=== PATIENT | male | born 1985 | race Hispanic/Latino ===

== ENCOUNTER → 2022-12-01 | Outpatient (CLI) | payer OTHER ==
[2022-12-01 12:09] LABS: BASOPHILS % (AUTO) 0.7 % (0.0-5.0); EOSINOPHILS % (AUTO) 1.3 % (0.0-8.0); HEMATOCRIT 45.8 % (42-54); LYMPHOCYTES % (AUTO) 25.8 % (21.0-51.0); MEAN CORPUSCULAR HEMOGLOBIN 28.5 pg (27.0-33.0); MEAN CORPUSCULAR VOLUME 86.6 fL (79-99); MONOCYTES % (AUTO) 11.5 % (3.0-13.0); NEUTROPHILS % (AUTO) 60.4 % (40.0-77.0); PLATELET COUNT (AUTO) 295 K/uL (130-400); RED BLOOD CELL COUNT(AUTO) 5.29 MIL/uL (4.50-6.20); RED CELL DISTRIBUTION WIDTH 12.3 % (11.0-15.5); WHITE BLOOD COUNT (AUTO) 7.5 K/uL (4.8-10.8)
[2022-12-01 12:29] LABS: CREATININE 1.1 mg/dL (0.5-1.5); POTASSIUM 3.8 mmol/L (3.5-5.1); THYROID STIMULATING HORMONE 1.79 uIU/mL (0.36-3.74)
== END | disposition home or self-care (01) ==
LOC: LAB 11-28 13:03
PROVIDERS: ATTEND Internal Medicine
DX: R00.2 Palpitations (principal)
CPT/HCPCS: 36415; 80048; 80061; 84439; 84443; 85025